=== PATIENT | male | born 1970 | race Hispanic/Latino ===

== ENCOUNTER 2018-08-27 09:32 | Emergency (ER) | payer BC, OTHER ==
[2018-08-27 09:42] VITALS: BMI 29.0
[2018-08-27 09:46] VITALS: RESP 20; O2SAT 96
--- NOTE | 2018-08-27 10:16 | C.PDOC ---
History Of Present Illness 48 year old male with no PMHx (last tetanus 1 year prior) presents to ED with head trauma and left third digit trauma that occurred today. Patient states that he was working in a basement when a metal basement door fell onto the right side of his head and something else fell onto the third digit of his left hand. Patient only notes left third digit pain at the distal end and a cut to the right side of his scalp. Patient states he is not currently on any blood thinners. He denies loss of consciousness, neck pain, chest impact/pain, abdominal pain/ impact, or wrist pain. - HPI Time Seen by Provider: 08/27/18 09:39 Chief Complaint (Nursing): Trauma History Per: Patient History/Exam Limitations: no limitations Onset/Duration Of Symptoms: Hrs Location Of Injury: Right: Head (laceration), Left: Hand (third digit pain) Past Medical History Reviewed: Historical Data, Nursing Documentation, Vital Signs Vital Signs: Last Vital Signs Temp 97.5 F L 08/27/18 09:42 Pulse 80 08/27/18 09:42 Resp 20 08/27/18 09:42 BP 137/73 08/27/18 09:42 Pulse Ox 96 08/27/18 09:42 Primary Care Provider: Non [facility] Provider, - Medical History PMH: Bronchitis Surgical History: No Surg Hx Family History: States: Unknown Family Hx - Social History Hx Alcohol Use: No Hx Substance Use: No - Immunization History Hx Tetanus Toxoid Vaccination: Yes Hx Influenza Vaccination: No Hx Pneumococcal Vaccination: No Review Of Systems Constitutional: Negative for: Fever, Weakness Eyes: Negative for: Pain, Vision Change ENT: Negative for: Ear Pain, Ear Discharge, Mouth Pain, Throat Pain, Throat Swelling Cardiovascular: Negative for: Chest Pain, Light Headedness Respiratory: Negative for: Shortness of Breath Gastrointestinal: Negative for: Nausea, Vomiting, Abdominal Pain Genitourinary: Negative for: Dysuria, Frequency, Incontinence, Hematuria, Scrotal Pain, Rash, Penile Pain Musculoskeletal: Positive for: Hand Pain (left third finger pain ). Negative for: Neck Pain, Back Pain Skin: Negative for: Rash Neurological: Positive for: Headache. Negative for: Weakness, Numbness, Change in Speech, Confusion, Seizures, Altered Mental Status, Dizziness Psych: Negative for: Anxiety, Depression, Psychosis, Suicidal ideation, Withdrawal Physical Exam - Physical Exam Appears: Non-toxic, No Acute Distress Skin: Normal Color, Warm, Dry Head: Normacephalic, Laceration (3.5 cm linear laceration to the right scalp, mild oozing, bleeding well-controlled, no visible skull or galeal membrane) Eye(s): bilateral: Normal Inspection, PERRL, EOMI Ear(s): Bilateral: Normal Nose: Normal, No Septal Hematoma Oral Mucosa: Moist Throat: Normal, No Erythema, No Exudate Neck: Normal ROM, Trachea Midline, No Midline Cervical Tenderness, No Paracervical Tenderness, Supple, No Other (meningeal signs- negative kernig's and brudzinskis) Chest: Symmetrical, No Deformity, No Tenderness Cardiovascular: Rhythm Regular, No Friction Rub Respiratory: No Rales, No Rhonchi, No Wheezing Gastrointestinal/Abdominal: Soft, No Tenderness, No Distention Back: Normal Inspection, No CVA Tenderness, No Vertebral Tenderness Extremity: Normal ROM, Capillary Refill (<2 seconds), Other (2 small 0.5 cm lacerations to the palmar aspect of the left third distal tip of the left upper extremity, nail bed intact along the dorsal aspect, no snuff box tenderness, no wrist pain, no subungal hematoma to the left third digit, no nail bed laceration, neurovascular intact) Extremity: Bilateral: Atraumatic, Normal Color And Temperature, Normal ROM Pulses: Left Radial: Normal, Right Radial: Normal, Left Dorsalis Pedis: Normal, Right Dorsalis Pedis: Normal Neurological/Psych: Oriented x3, Normal Speech, Normal Cognition, Normal Cranial Nerves, No Cerebellar Signs, Normal Motor, Normal Sensation Gait: Steady Other Neurological Findings: No Facial Palsy Extremity: Right: No Drift, Left: No Drift ED Course And Treatment O2 Sat by Pulse Oximetry: 96 (in RA) Pulse Ox Interpretation: Normal - Other Rad Left 3rd digit X-ray X-Ray: Interpreted by Me, Viewed By Me Interpretation: IMPRESSION: Crush fracture in the tuft of the distal phalanx of the middle finger with associated severe soft tissue swelling. - CT Scan/US Head CT Other Rad Studies (CT/US): Interpreted By Me, Read By Radiologist CT/US Interpretation: IMPRESSION: No acute intracranial abnormality. Laceration - Laceration Repair Left 3rd digit Wound Length (In cm): 0.5 Description Of Wound: Linear Wound Cleansed With: Betadine, Sterile Saline Anesthesia: Lidocaine 1% Wound Examination: Irrigated With Saline, No FB With Wound Exploration Wound Closure: Suture (5) Suture Technique And Material Used: Interrupted, Prolene (5:0) Wound Complexity: Simple Right Scalp Wound Length (In cm): 3.5 Description Of Wound: Linear Wound Cleansed With: Betadine, Sterile Saline Anesthesia: Lidocaine 1% Wound Examination: Irrigated With Saline, No FB With Wound Exploration Wound Closure: Bon (11) Wound Complexity: Simple Medical Decision Making Medical Decision Making: Impression: 48 year old male with no PMHx (last tetanus 1 year prior) presents to ED with head trauma and left third digit trauma. No neck pain, no other pain besides 3rd left digit and R side of scalp. Initial Plan: Head CT Left hand X-ray Left hand laceration cleaned with saline and betadine Left 3rd digit laceration cleaned with saline and betadine. 0.5 cm in length. Wound was linear,clean, and simple. Lidocaine 1% applied. 5:0 Prolene used. 5 stitches applied. Interrupted and simple. Right scalp laceration 3.5 cm in length. Cleaned with saline and betadine. Wound was linear, clean and simple. Lidocaine 1% applied. 11 bon applied to the right scalp. Patient tolerated procedures well. MDM: laceration vs fracture vs compression Head CT: No acute intracranial abnormality. Left Hand X-ray:Crush fracture in the tuft of the distal phalanx of the middle finger with associated severe soft tissue swelling. 1350 Neuro exam remains unremarkable, pt in NAD with VSS I endorsed need to follow up with ortho, orthopedics/hand and return indications. Pt agreeable to plan. Disposition - Disposition Referrals: Physician,ED [Primary Care Provider] - Jonh Bacon MD [Staff Provider] - Yanni Garcia MD [Staff Provider] - [facility] [Outside] [facility] [Outside] [facility] [Outside] Disposition: HOME/ ROUTINE Disposition Time: 13:50 Condition: STABLE Additional Instructions: RETURN IN 7-10 days for suture removal. RETURN FOR INFECTION TO THAT SITE OR ANY OTHER ISSUES LARRY GONZALES, thank you for letting us take care of you today. Your provider was Doug Lujan and you were treated for DOOR HIT HEAD. The emergency medical care you received today was directed at your acute symptoms. If you were prescribed any medication, please fill it and take as directed. It may take several days for your symptoms to resolve. Return to the Emergency Department if your symptoms worsen, do not improve, or if you have any other problems. Please contact your doctor or call one of the physicians/clinics you have been referred to that are listed on the Patient Visit Information form that is included in your discharge packet. Bring any paperwork you were given at discharge with you along with any medications you are taking to your follow up visit. Our treatment cannot replace ongoing medical care by a primary care provider outside of the emergency department. Thank you for allowing the [facility] team to be part of your care today. If you had an X-Ray or CT scan: A Radiologist will review the ED reading if any change in treatment is needed we will contact you. If you had a blood, urine, or wound culture: It will take several days for the results, if any change in treatment is needed we will contact you. If you had an STI test: It will take 48 hours for the results. Please call after 1 week if you have not heard back. Prescriptions: Cephalexin [Keflex] 500 mg PO BID 7 Days #14 capsule Instructions: Finger Fracture, Laceration Repair, Concussion, Adult (DC), Wound Care (DC), Laceration Repair With Stevenson (DC), Laceration Repair With Stitches (DC) Forms: [employer] (Croatian), Work Excuse - Clinical Impression Clinical Impression: Laceration of head, Closed fracture of tuft of distal phalanx of finger, Finger laceration, Concussion - Scribe Statement The provider has reviewed the documentation as recorded by the Scribe (Jessica Montero) All medical record entries made by the Scribe were at my direction and personally dictated by me. I have reviewed the chart and agree that the record accurately reflects my personal performance of the history, physical exam, medical decision making, and the department course for this patient. I have also personally directed, reviewed, and agree with the discharge instructions and disposition.
--- NOTE | 2018-08-27 11:26 | CT ---
Date of service: 08/27/2018 PROCEDURE: CT HEAD WITHOUT CONTRAST. HISTORY: Injury COMPARISON: None available. TECHNIQUE: Axial computed tomography images were obtained through the head/brain without intravenous contrast. Radiation dose: Total exam DLP = 958.28 mGy-cm. This CT exam was performed using one or more of the following dose reduction techniques: Automated exposure control, adjustment of the mA and/or kV according to patient size, and/or use of iterative reconstruction technique. FINDINGS: HEMORRHAGE: No intracranial hemorrhage. BRAIN: Bay-white matter differentiation is preserved. There is no mass, mass effect or abnormal extra-axial fluid collection. There is no territorial infarction. The midline sagittal structures are normal. VENTRICLES: The ventricles are normal in size, shape and configuration. CALVARIUM: There is no calvarial fracture or extracranial soft tissue swelling. PARANASAL SINUSES: There is a small retention cyst/polyp in the right maxillary sinus. There is moderate mucoperiosteal thickening in the ethmoid air cells. MASTOID AIR CELLS: Predominantly clear. OTHER FINDINGS: None. IMPRESSION: No acute intracranial abnormality.
--- NOTE | 2018-08-27 11:39 | RAD ---
Date of service: 08/27/2018 PROCEDURE: Left middle finger radiographs. HISTORY: door fell COMPARISON: None. TECHNIQUE: AP radiograph of the left hand, as well as spot oblique and lateral images of index finger were obtained. 4 views obtained. FINDINGS: LEFT MIDDLE FINGER: There is a crush fracture in the tuft of the distal phalanx of the middle finger. Bone alignment and mineralization are normal. JOINTS: Normal. SOFT TISSUES: There is severe soft tissue swelling in the 3rd finger. OTHER FINDINGS: None. IMPRESSION: Crush fracture in the tuft of the distal phalanx of the middle finger with associated severe soft tissue swelling.
[2018-08-27] MEDS ORDERED: Lidocaine 1% Inj (20ml) INFIL ONE (12:03)
[2018-08-27] MEDS ORDERED: Lidocaine Hydrochloride 5 ML INJ ONE (12:04)
[2018-08-27 14:05] VITALS: BP 131/88; PULSE 69; TEMP 97.4
== END 2018-08-27 14:13 | disposition home or self-care (01) ==
LOC: C.ER 09:32
DX: S01.01XA Laceration without foreign body of scalp, initial encounter (principal); S61.213A Laceration without foreign body of left middle finger without damage to nail, initial encounter; S62.633A Displaced fracture of distal phalanx of left middle finger, initial encounter for closed fracture; W22.8XXA Striking against or struck by other objects, initial encounter; Y92.89 Other specified places as the place of occurrence of the external cause; Y99.8 Other external cause status